=== PATIENT | female | born 1950 | race Caucasian/White ===

== ENCOUNTER 2023-12-12 16:28 | Emergency (ER) | payer MEDICARE, OTHER, SELFPAY ==
--- NOTE | ~2023-12-12 | CT_ITS ---
EXAMINATION: CT HEAD WITHOUT CONTRAST CLINICAL INFORMATION: Altered mental status COMPARISON: CT head May 2019. MRI brain May 2019. TECHNIQUE: Contiguous axial imaging was performed from the skull base to vertex without intravenous administration of contrast. This CT examination was performed using dose optimization techniques as appropriate, variously including the following: *Automated exposure control *Adjustment of mA and/or kV according to patient size (this includes techniques or standardized protocols for targeted exams where dose is matched to indication/reason for exam; i.e. extremities or head) *Use of iterative reconstruction technique DLP: 645 mGy-cm FINDINGS: There is no mass hemorrhage or cerebral edema. There is periventricular white matter changes compatible with chronic small vessel ischemia No extra-axial fluid collection. Soft tissue scalp normal. Bone/calvarium normal. Sinuses clear. Mastoid air cells clear. CT/CT head/brain wo IV con IMPRESSION: No acute intracranial pathology. Stable chronic changes Electronically signed by: Ivan Mora MD 12/12/2023 08:22 PM EDT
[2023-12-12 16:57] VITALS: BP 136/84; BP 166/88; PULSE 111; PULSE 18; RESP 18; TEMP 36.4; O2SAT 100; O2SAT 99; BMI 23.2
--- NOTE | 2023-12-12 17:39 | PC.NURSE ---
Straight catheter for urine, voided 400 mL concentrated yellow urine, foul odor. Suspected UTI.
--- NOTE | 2023-12-12 17:45 | PC.NURSE ---
Purewick placed after straight catheterization.
[2023-12-12 17:54] LABS: Appearance Urine Turbid; Color Urine Dark Yellow; Glucose Urine UA Negative (Negative); Leukocyte Esterase Urine Negative (Negative); Nitrite Urine Negative (Negative); Specific Gravity - Urine 1.015 (1.005-1.025); UMIC TRIGGER UACC YES; Urine Blood Negative (Negative); Urine Ketones Negative (Negative); Urine Protein 30 (1+) mg/dL (Neg-Trace)
[2023-12-12 17:56] LABS: Bacteria Urine None Seen (None Seen); Hyaline Casts Urine 0-2 /LPF (0-2); RBC Urine 0-2 /HPF (0-2); Squamous Epithelial Cell Urine 0-2 /HPF (0-2); WBC Urine 0-5 /HPF (0-5)
[2023-12-12] MEDS: Morphine Sulfate ER 15 MG TABLET.ER PO (18:07)
[2023-12-12] MEDS: ondansetron HCL 4 MG/2 ML VIAL IVPUSH (18:07)
[2023-12-12] MEDS: 0.9 % Sodium Chloride 500 ML IV (18:10)
--- NOTE | 2023-12-12 18:17 | ED_ITS ---
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 Patient states she received both the shingles and COVID vaccine 4 days ago. Over the past few days, she has become globally weak, with poor p.o. intake and associated nausea. Patient states today, she felt as if her legs were going to give out. Denies fever, abdominal pain. Denies paresthesias of lower extremity, urinary retention, bowel incontinence. Related Data Allergies Allergy/AdvReac Type Severity Reaction Status Date / Time ibuprofen [IBUPROFEN] Allergy Mild RASH Verified 12/12/23 17:03 Sulfa (Sulfonamide Allergy Mild RASH Verified 12/12/23 17:03 Antibiotics) [SULFA (SULFONAMIDE ANTIBIOTICS)] Review of Systems 2 Review of Systems: Yes all other systems are reviewed and are negative Constitutional: Constitutional: Reports fatigue, Reports poor appetite and Reports weakness Cardiovascular: Cardiovascular: Denies chest pain and Denies dyspnea Respiratory: Respiratory: Denies dyspnea Gastrointestinal: Gastrointestinal: Denies abdominal pain and Reports nausea Musculoskeletal: Musculoskeletal: Reports back pain Neurologic: Denies paresthesias and Reports weakness Endocrine: Endocrine: Reports fatigue PMFSH Past Medical History Attestation statement: The following information was validated with the patient. Social History Social History Advance Directives: No Advance Directives Information Provided: No Physical Exam ED Vital Signs: Vital Signs - 24 hr 12/12/23 16:57 12/12/23 19:33 12/12/23 22:27 Temperature 97.5 F 98.0 F 98.9 F Pulse Rate 111 H 65 67 Respiratory Rate 18 18 20 Blood Pressure 166/88 H 151/50 H 164/53 H Pulse Oximetry 99 98 98 Oxygen Delivery Method Room Air Room Air Room Air BMI result Body Mass Index 23.2 Const Other: Awake, cachectic, fearful in appearance and tearful at times Orientation/consciousness: patient oriented x3 HENMT Other: Dry oral mucosa Resp Effort & Inspection: normal respiratory effort Cardio Other: Normal peripheral perfusion GI Other: Abdomen is soft, nondistended nontender Skin Other: Warm dry no rash Neuro Other: Patient has left-sided weakness is subtle, not detectable on exam General: patient oriented x3, no focal motor deficits and CN's II-XI intact bilaterally Extrem Other: Patient is globally weak, no focal regions of motor weakness, after being medicated with her daily morphine, the patient is ambulating with a walker at her baseline, her at bedside to verify Psych Other: Anxious, but cooperative Course Reevaluation(s) Reevaluation #1: The patient's is now here at bedside as we are performing an ambulation trial, he verifies that she is at her baseline. They both agree that she could benefit from a physical therapy assessment. I will place consult for case management and PT. Medications Administered Discontinued Medications Generic Name Dose Route Start Last Admin Trade Name Freq PRN Reason Stop Dose Admin Sodium Chloride 500 mls @ 500 mls/hr 12/12/23 17:09 12/12/23 18:10 Ns IV 12/12/23 18:08 500 mls/hr .Q1H ONE Administration Morphine Sulfate 15 mg 12/12/23 17:36 12/12/23 18:07 Morphine Sulfate Er 15 Mg Tablet.Er PO 12/12/23 17:37 15 mg ONCE ONE Administration Ondansetron HCl 4 mg 12/12/23 17:09 12/12/23 18:07 Ondansetron Hcl 4 Mg/2 Ml Vial IVPUSH 12/12/23 17:10 4 mg ONCE ONE Administration Medical Decision Making Medical Decision Making MDM Narrative: 73-year-old female with a history of prior back injury now status post L1 through L5 fusion on chronic opiate therapy, subsequent gait instability, prior CVA with subtle residual left-sided weakness isolated to the upper and lower extremity, prior Guillain-[place] as a child induced by 1 of her vaccines, presents with weakness. Patient states she received both the shingles and COVID vaccine 4 days ago. Over the past few days, she has become globally weak, with poor p.o. intake and associated nausea. Patient states today, she felt as if her legs were going to give out. Denies fever, abdominal pain. Denies paresthesias of lower extremity, urinary retention, bowel incontinence. Problem: Prior back injury with chronic pain, gait instability, prior stroke, prior Guillain-[place] History: Per patient I have considered the following differential diagnoses: Failure to thrive, vaccine reaction, electrolyte abnormality, dehydration, cauda equina Plan: Patient here with overall global weakness, this could be due to the vaccines she received concurrently 4 days ago. She is very concerned that she is developing Guillain-Palmyra. Given it has only been 4 days I do not think this is feasible. She is due for her pain medication, she is very uncomfortable in bed and with the any movement to transition her in bed. We will give her her prescribed 50 mg extended-release morphine. Thought about cauda equina, however her pain is at baseline, she does not have red flag signs symptoms concerning for cord compression. She is somewhat a picture of failure to thrive, perhaps she is dehydrated and has an associated electrolyte abnormality. We will be giving IV fluid. When she talks about her prior CVA, she states she was treated here. I can not find a record of her in our system, unclear if she is altered/confused. We will obtain a CT scan of her brain. When we are performing a straight catheterization to obtain a urine sample, her urine was extremely foul smelling, however she did not change her brief for over a day, she may have a UTI. I have independently reviewed the following tests: Labs: Not anemic, no leukocytosis, no electrolyte abnormality, urine not infected CT brain:CT HEAD WITHOUT CONTRAST CLINICAL INFORMATION: Altered mental status COMPARISON: CT head May 2019. MRI brain May 2019. TECHNIQUE: Contiguous axial imaging was performed from the skull base to vertex without intravenous administration of contrast. This CT examination was performed using dose optimization techniques as appropriate, variously including the following: *Automated exposure control *Adjustment of mA and/or kV according to patient size (this includes techniques or standardized protocols for targeted exams where dose is matched to indication/reason for exam; i.e. extremities or head) *Use of iterative reconstruction technique DLP: 645 mGy-cm FINDINGS: There is no mass hemorrhage or cerebral edema. There is periventricular white matter changes compatible with chronic small vessel ischemia No extra-axial fluid collection. Soft tissue scalp normal. Bone/calvarium normal. Sinuses clear. Mastoid air cells clear. CT/CT head/brain wo IV con IMPRESSION: No acute intracranial pathology. Stable chronic changes Electronically signed by: Ivan Mora MD 12/12/2023 08:22 PM EDT RP Lab Data 12/12/23 18:32 12/12/23 18:32 Labs: Lab Results 12/12/23 12/12/23 Range/Units 17:42 18:32 WBC 4.9 (4.8-10.8) X10*3/uL RBC 3.40 L (4.20-5.50) X10*6/uL Hgb 11.3 L (12.0-16.0) g/dl Hct 33.2 L (37.0-47.0) % MCV 97.6 (80.0-98.0) fL MCH 33.2 H (27.0-33.0) pg MCHC 34.0 (31.0-35.0) g/dl RDW 13.0 (11.0-16.0) % Plt Count 192 (160-400) X10*3/uL MPV 9.4 (9.4-12.3) fL Immature Gran % (Auto) 0.2 (0.0-0.4) % Neut % (Auto) 62.9 (45-73) % Lymph % (Auto) 26.2 (20-40) % [place] % (Auto) 9.1 (2-11) % Eos % (Auto) 1.2 (0-4) % Baso % (Auto) 0.4 (0-2) % Lymph # (Auto) 1.3 (1.2-4.9) X10*3/uL [place] # (Auto) 0.5 (0.1-1.2) X10*3/uL Eos # (Auto) 0.1 (0.0-0.4) X10*3/uL Baso # (Auto) 0.0 (0.0-0.2) X10*3/uL Abs Immat Gran (auto) 0.01 (0.00-0.03) X10*3/uL Absolute Neuts (auto) 3.1 (2.0-8.3) x10*3/uL Absolute Nucleated RBC 0.000 (0.0-0.012) X10*3/uL Nucleated RBC % (auto) 0.0 (0.0-0.2) /100WBC Sodium 143 (135-145) mmol/L Potassium 3.8 (3.3-5.1) mmol/L Chloride 105 (96-108) mmol/L Carbon Dioxide 29 (22-29) mmol/L Anion Gap 13 (12-20) BUN 21 H (9-16) mg/dL Creatinine 0.79 (0.5-1.4) mg/dL Estim Creat Clear Calc 50.8 Estimated GFR > 60 Random Glucose 121 H (60-115) mg/dL Calcium 10.0 (8.4-10.2) mg/dL Magnesium 1.8 (1.6-2.6) mg/dL Total Bilirubin 0.4 (0.0-1.0) mg/dL AST 20 (5-31) U/L ALT 16 (0-31) U/L Alkaline Phosphatase 43 (39-117) U/L Total Protein 6.7 (6.5-8.0) g/dL Albumin 4.0 (3.5-5.0) g/dL Urine Color Dark Yellow Urine Appearance Turbid Urine pH 8.0 (5.0-9.0) Ur Specific [place] 1.015 (1.005-1.025) Urine Protein 30 (1+) H (Neg-Trace) mg/dL Urine Glucose (UA) Negative (Negative) mg/dL Urine Ketones Negative (Negative) mg/dL Urine Blood Negative (Negative) Urine Nitrite Negative (Negative) Ur Leukocyte Esterase Negative (Negative) Urine RBC 0-2 (0-2) /HPF Urine WBC 0-5 (0-5) /HPF Ur Squamous Epith Cells 0-2 (0-2) /HPF Urine Bacteria None Seen (None Seen) Hyaline Casts 0-2 (0-2) /LPF Discharge Plan Discharge Clinical Impression: Gait instability, Weakness, Chronic pain Patient Disposition: Still a Patient Print Language: [place]
[2023-12-12 18:37] LABS: MANUAL DIFF FLAG NO
[2023-12-12 18:38] LABS: Basophils Percent Auto 0.4 % (0-2); Eosinophils Absolute Auto 0.1 X10*3/uL (0.0-0.4); Eosinophils Percent Auto 1.2 % (0-4); Hematocrit 33.2 % (37.0-47.0); Hemoglobin 11.3 g/dl (12.0-16.0); Imm Gran Abs Auto 0.01 X10*3/uL (0.00-0.03); Imm Gran Pct Auto 0.2 % (0.0-0.4); Lymphocytes Absolute Auto 1.3 X10*3/uL (1.2-4.9); Lymphocytes Percent Auto 26.2 % (20-40); Mean Corpuscular Hemoglobin 33.2 pg (27.0-33.0); Mean Corpuscular Volume 97.6 fL (80.0-98.0); Mean Platelet Volume 9.4 fL (9.4-12.3); Monocytes Absolute Auto 0.5 X10*3/uL (0.1-1.2); Monocytes Percent Auto 9.1 % (2-11); Neutrophils Absolute Auto 3.1 x10*3/uL (2.0-8.3); Neutrophils Percent Auto 62.9 % (45-73); Platelet Count 192 X10*3/uL (160-400); White Blood Count 4.9 X10*3/uL (4.8-10.8)
[2023-12-12 18:53] LABS: Alanine Aminotransferase 16 U/L (0-31); Alkaline Phosphatase 43 U/L (39-117); Anion Gap 13 (12-20); Aspartate Amino Transferase 20 U/L (5-31); Bilirubin Total 0.4 mg/dL (0.0-1.0); Blood Urea Nitrogen 21 mg/dL (9-16); Carbon Dioxide 29 mmol/L (22-29); Chloride 105 mmol/L (96-108); Creatinine Clr Calc Pharmacy 50.8; Estimated Glomerular Filt Rate > 60; Glucose Random 121 mg/dL (60-115); Magnesium 1.8 mg/dL (1.6-2.6); Potassium 3.8 mmol/L (3.3-5.1); Sodium 143 mmol/L (135-145); Total Protein 6.7 g/dL (6.5-8.0)
[2023-12-12 19:33] VITALS: BP 151/50; PULSE 65; RESP 18; TEMP 36.7; O2SAT 98
--- NOTE | 2023-12-12 22:14 | PC.NURSE ---
Plan for PT/Case Management. Was seen by Pascale Mcduffie (retail asset protection specialist). Pending insurance authorizations/coverage, plan for PT in the morning. FLOR Meza aware.
[2023-12-12 22:27] VITALS: BP 164/53; PULSE 67; RESP 20; TEMP 37.2; O2SAT 98
--- NOTE | 2023-12-12 22:41 | MHC.EDTECH ---
Patient requested something to eat, this PCT gave her a sandwich, fortunato sangita and tania crackers. Belongings list completed. Belongings at bedside
--- NOTE | 2023-12-12 22:41 | MHC.CM.ED ---
CM met with patient and at the request of Pascale RAY. Pt has hx of back issues., surgeries, and prior CVA. Pt C/O weakness and feeling unwell. Medical work-up negative. Does not meet criteria for admission. Pt tells CM that she uses a cane plus 1. Uses a person to help with ambulation. Pt has several walker.s Pt has been hesitant to use walker in the home. CM spoke to patient about safety in the home. has questions about installing a chair life. They have a [facility] and his has some safety issues with the stairs. CM encouraged them to consider a chair lift and to speak with Physical therapist tomorrow. Pt to have PT evaluation in the morning. CM discussed, Outpatient PT, Home PT, STR and Acute rehab. Pt had rehab at [facility] in the past. CM explained that patient does not currently have medical needs requiring Acute rehab. Pt sttes she had the shingles and Covid vaccines on 12/07 and attributes her weakness and general feelings of unwellness to the vaccinations. Will place local referrals for STR. Pt has Medicare and [employer] insurance. If STR is not recommended, patient may be agreeable to home PT. Discussed help in the home and referral to [facility]. At this time, does not feel they need a referral to [facility]. CM will follow for discharge planning.
[2023-12-13 01:55] VITALS: BP 112/49; PULSE 69; RESP 18; TEMP 36.8; O2SAT 97
--- NOTE | 2023-12-13 05:51 | PC.NURSE ---
this rn assumed care of pt, pt resting in stretcher, no acute distress noted. 98% on room air.
[2023-12-13 06:21] VITALS: BP 120/49; PULSE 65; RESP 18; O2SAT 95
--- NOTE | 2023-12-13 07:20 | PC.NURSE ---
report received from previous RN, patient ambulated with one assist and walker with this RN to ED rm 22, placed on hospital bed for comfort, pure wick placed, all safety maintained at this time provided with call vizcarra, adjusted for comfort. plan of care remains ongoing
--- NOTE | 2023-12-13 09:26 | PC.NURSE ---
PT and family member at bedside
[2023-12-13 09:35] VITALS: PULSE 73; O2SAT 100
--- NOTE | 2023-12-13 09:37 | PC.NURSE ---
patient assisted onto bedside commode placed back in bed by this RN and provided with breakfast tray
[2023-12-13 10:37] VITALS: BP 113/51; PULSE 78; RESP 16; TEMP 36.6; O2SAT 100
--- NOTE | 2023-12-13 11:38 | MHC.CM.ED ---
Met w/pt and spouse to discuss PT eval recommendation for home w/walker and possible services. Pt would like outpt PT here at [facility] [place] [facility]: instructed pt to contact her primary on Friday for an order. Pt has a walker at home and spouse states he will assist her with all transfers and ambulation to ensure pt safety. ED care team informed of d/c plan: spouse will transport.
--- NOTE | 2023-12-13 12:48 | PC.NURSE ---
patient assisted onto bedside commode
[2023-12-13 13:06] VITALS: BP 126/39; PULSE 67; RESP 16; TEMP 36.9; O2SAT 98
== END 2023-12-13 13:21 | disposition home or self-care (01) ==
PROVIDERS: Physician Assistant Medical; Emergency Provider Internal Medicine; PCP Family Medicine
DX: R53.1 Weakness (principal); R26.89 Other abnormalities of gait and mobility; R41.82 Altered mental status, unspecified; G89.4 Chronic pain syndrome; Z79.891 Long term (current) use of opiate analgesic
CPT/HCPCS: 36415; 70450; 80053; 81001; 83735; 85025; 96374; 97162; 99284; 99285; J2405

== ENCOUNTER 2024-05-21 13:06 | Outpatient (RCR) | payer MEDICARE, OTHER, SELFPAY | END 2024-07-07 08:04 | disposition home or self-care (01) | LOC: HO.PT 13:06 | PROVIDERS: PCP Family Medicine; Visit Provider Family Medicine | DX: M62.81 Muscle weakness (generalized) (principal) | CPT/HCPCS: 97110; 97116; 97163; 97530 ==